=== PATIENT | male | born 1985 | race Caucasian/White ===

== ENCOUNTER 2017-11-17 21:20 | Emergency (ER) | payer OTHER ==
[2017-11-17] MEDS ORDERED: METOCLOPRAMIDE 10 MG/2 ML VIAL IVP ONE (21:46)
[2017-11-17] MEDS ORDERED: NS 1,000 ML IV ONE (21:47)
[2017-11-17] MEDS ORDERED: METOCLOPRAMIDE 10 MG/2 ML VIAL ONE (21:57)
[2017-11-17] MEDS ORDERED: MAGNESIUM SULF 1 GM/DEXTROSE 100 ML BAG IV ONE (22:46)
[2017-11-17] MEDS ORDERED: MAGNESIUM SULF 1 GM/DEXTROSE 100 ML IV ONE (22:46)
[2017-11-17] MEDS ORDERED: KETOROLAC 15 MG/1 ML SDV IVP ONE (22:46)
[2017-11-17] MEDS ORDERED: KETOROLAC 15 MG/1 ML SDV ONE (22:46)
[2017-11-17 23:23] VITALS: BP 125/73
--- NOTE | 2017-11-17 23:44 | EDPHY ---
H & P Time Seen by Provider: 11/17/17 21:30 HPI/ROS: CHIEF COMPLAINT: Headache HISTORY OF PRESENT ILLNESS: Patient is a 32-year-old male here chief complaint of headache for the last 24 hr. He has no significant past medical history uses no drugs or alcohol. He reports that yesterday morning he woke with a dull headache which slowly progressed throughout the day. He reports pulsating sensation to the left temporal area. There was no head injury. He has had no fever. He has no history of aneurysm and no family history of aneurysm with subarachnoid. He has tried Tylenol without relief of pain. Does report phono and photophobia. Denies any neck stiffness. REVIEW OF SYSTEMS: Constitutional: No fever, no chills. Eyes: No discharge. ENT: No sore throat. Cardiovascular: No chest pain, no palpitations. Respiratory: No cough, no shortness of breath. Gastrointestinal: No abdominal pain, no vomiting. Genitourinary: No hematuria. Musculoskeletal: No back pain. Skin: No rashes. Neurological: No dizziness, vision changes, ataxia. Smoking Status: Never smoked Physical Exam: General Appearance: Alert and no distress. Eyes: Pupils equal and round no injection. Respiratory: Chest is nontender, lungs are clear to auscultation. Cardiac: regular rate and rhythm. Gastrointestinal: Abdomen is soft and nontender, no masses, bowel sounds normal. Musculoskeletal: Neck is supple and nontender. Extremities have full range of motion and are nontender. Skin: No rashes or lesions. Constitutional: Initial Vital Signs Temperature (C) 36.4 C 11/17/17 21:23 Heart Rate 50 L 11/17/17 21:23 Respiratory Rate 16 11/17/17 21:23 Blood Pressure 120/84 H 11/17/17 21:23 O2 Sat (%) 99 11/17/17 21:23 O2 Delivery Mode Room Air Allergies/Adverse Reactions: No Known Allergies Allergy (Unverified 11/17/17 21:22) Home Medications: Medication Instructions Recorded Codeine/Butalbital/ASA/Caffein 1 each PO Q4 #12 capsule 11/17/17 [Fiorinal with Codeine #3 Cap] Medical Decision Making - Diagnostics Imaging Results: Imaging Impressions Head CT 11/17/17 22:11 Impression: Normal CT of the head. Specifically, a headache source is not identified. Results called and discussed with Spencer Simmons on 11/17/2017 at 22:47. ED Course/Re-evaluation: Patient here with 24 hr of headache that given its photophobia and phonophobia is likely a migraine headache. CT scan was obtained given this is his 1st headache of this type. There is no evidence of intracranial bleed, mass with acute abnormality. He has no focal deficits at time of discharge and feels significantly improved after IV fluids, Toradol, Reglan and magnesium. Patient seen under the direct supervision of doctor Cole Differential Diagnosis: Subarachnoid hemorrhage, intracranial bleed, migraine headache, trigeminal neuralgia, anemia - Data Points Laboratory Results: Laboratory Results 11/17/17 21:00 11/17/17 21:00 11/17/17 11/17/17 21:00 21:00 WBC 7.17 10^3/uL 10^3/uL (3.80-9.50) RBC 4.61 10^6/uL 10^6/uL (4.40-6.38) Hgb 15.4 g/dL g/dL (13.7-17.5) Hct 41.1 % % (40.0-51.0) MCV 89.2 fL fL (81.5-99.8) MCH 33.4 pg pg (27.9-34.1) MCHC 37.5 g/dL H g/dL (32.4-36.7) RDW 12.5 % % (11.5-15.2) Plt Count 182 10^3/uL 10^3/uL (150-400) Sodium 140 mEq/L mEq/L (135-145) Potassium 3.8 mEq/L mEq/L (3.3-5.0) Chloride 110 mEq/L mEq/L (97-110) Carbon Dioxide 24 mEq/l mEq/l (22-31) Anion Gap 6 mEq/L L mEq/L (8-16) BUN 18 mg/dL mg/dL (7-23) Creatinine 1.1 mg/dL mg/dL (0.7-1.3) Estimated GFR > 60 Glucose 96 mg/dL mg/dL (70-100) Calcium 9.5 mg/dL mg/dL (8.5-10.4) Medications Given: Discontinued Medications Diphenhydramine HCl (Benadryl Injection) 25 mg IVP EDNOW ONE Stop: 11/17/17 21:48 Last Admin: 11/17/17 21:55 Dose: 25 mg Sodium Chloride (Ns) 1,000 mls @ 0 mls/hr IV EDNOW ONE; Wide Open PRN Reason: Protocol Stop: 11/17/17 21:48 Last Admin: 11/17/17 21:53 Dose: 1,000 mls Magnesium Sulfate/Dextrose (Magnesium Sulf 1 Gm (Premix)) 100 mls @ 100 mls/hr IV EDNOW ONE Stop: 11/17/17 23:45 Last Admin: 11/17/17 22:52 Dose: 100 mls Ketorolac Tromethamine (Toradol) 15 mg IVP ONCE ONE Stop: 11/17/17 22:47 Last Admin: 11/17/17 22:51 Dose: 15 mg Metoclopramide HCl (Reglan Injection) 10 mg IVP EDNOW ONE Stop: 11/17/17 21:47 Last Admin: 11/17/17 21:56 Dose: 10 mg Departure - Departure Disposition: Home, Routine, Self-Care Clinical Impression: Migraine headache Condition: Good Instructions: Migraine Headache (ED), Acute Headache (ED) Additional Instructions: Return to the ER for any worsening or worrisome symptoms Referrals: VASILE LEAL [Primary Care Provider] - As per Instructions Prescriptions: Codeine/Butalbital/ASA/Caffein [Fiorinal with Codeine #3 Cap] 1 each PO Q4 #12 capsule
== END 2017-11-18 00:16 | disposition home or self-care (01) ==
DX: G43.909 Migraine, unspecified, not intractable, without status migrainosus (principal); E86.9 Volume depletion, unspecified
CPT/HCPCS: 96374; J1200; J1885; J2765; J3475

== ENCOUNTER 2018-02-17 14:47 | Emergency (ER) | payer OTHER ==
--- NOTE | 2018-02-17 15:03 | EDPHY ---
H & P Stated Complaint: dog bite to lip - Personal History Current Tetanus Diphtheria and Acellular Pertussis (TDAP): Yes - Medical/Surgical History Hx Asthma: No Hx Chronic Respiratory Disease: No Hx Diabetes: No Hx Cardiac Disease: No Hx Renal Disease: No Hx Cirrhosis: No Hx Alcoholism: No Hx HIV/AIDS: No Hx Splenectomy or Spleen Trauma: No Other PMH: none - Social History Smoking Status: Never smoked Time Seen by Provider: 02/17/18 15:02 Constitutional: Initial Vital Signs Temperature (C) 36.4 C 02/17/18 14:54 Heart Rate 75 02/17/18 14:54 Respiratory Rate 16 02/17/18 14:54 Blood Pressure 130/81 H 02/17/18 14:54 O2 Sat (%) 98 02/17/18 14:54 Allergies/Adverse Reactions: No Known Allergies Allergy (Unverified 11/17/17 21:22) Home Medications: Medication Instructions Recorded NK [No Known Home Meds] 02/17/18 Medical Decision Making Procedures: I was asked by Dr. Ashwin Looney to repair lip laceration. Laceration repair. Verbal consent was obtained from the patient. The 2 cm laceration on the right upper lip crossing vermilion border was anesthetized using 1% lidocaine with epinephrine. The wound was irrigated with saline, draped and explored to its base with a gloved finger. There were no deep structures involved. The wound was repaired with 6 0 Prolene, 7 sutures. The wound repair was complex. The procedure was performed by myself. (Eloina Sinclair) ED Course/Re-evaluation: CHIEF COMPLAINT: Dog bite to lip HISTORY OF PRESENT ILLNESS: The patient is a 33 y/o male complaining of a dog bite to his lip today. He was walking in a dog park today when he saw a dog and went to pet it when he was accidentally bit. Per the patient, the dog is up-to-date on it's vaccinations. The patient states he is up-to-date on his Tetanus vaccination. Denies numbness , paresthesias, headache, fever, chest pain, shortness of breath, abdominal pain , urinary or bowel complaints. REVIEW OF SYSTEMS: A comprehensive 10 system review of systems is otherwise negative aside from elements mentioned in the history of present illness and medical decision making. PHYSICAL EXAM: HR, BP, O2 Sat, RR. Temp noted General Appearance: Alert, well hydrated, appropriate, and non-toxic appearing. Head: Atraumatic without scalp tenderness or obvious injury Eyes: Pupils equal, round, reactive to light and accommodation, EOMI, no trauma , no injection. Ears: Clear bilaterally, no perforation, normal landmarks Nose: Atraumatic, no rhinorrhea, clear. Throat: There is no erythema or exudates, no lesions, normal tonsils, mucus membranes moist. Mouth: 2.5 cm vertical laceration aligning with the lateral aspect of the right nasal ala and coursing through the laine border; it is not through and through. There are several additional puncture wounds to the lip. Neck: Supple, nontender, no lymphadenopathy. Respiratory: No retractions, no distress, no wheezes, and no accessory muscle use. Lungs are clear to auscultation bilaterally. Cardiovascular: Regular rate and rhythm, no murmurs, rubs, or gallops. Bilateral carotid, radial, dorsalis pedis, and posterior tibial pulses intact. Good capillary refill all extremities. Gastrointestinal: Abdomen is soft, nontender, non-distended, no masses, no rebound, no guarding, no peritoneal signs. Musculoskeletal: Normal active ROM of all extremities, atraumatic. Neurological: Alert, appropriate, and interactive. The patient has normal DTRs and non-focal cranial nerves, motor, sensory, and cerebellar exam. Skin: No rashes, good turgor, no nodules on palpation. Past medical history: Denies Past surgical history: Denies Family history: Denies Social history: Girlfriend at bedside, lives in [place], self-employed DIAGNOSTICS/PROCEDURES/CRITICAL CARE TIME: Not indicated DIFFERENTIAL DIAGNOSIS: The differential diagnosis for the patient's lip injury included but was not limited to laceration, abrasion, dental trauma, contusion, muscular strain. MEDICAL DECISION MAKING: The patient is a 33 y/o male presenting with a dog bite to his lip today. On exam there is a 2.5 cm vertical laceration aligning with the lateral aspect of the right nasal ala and coursing through the laine border; it is not through and through. There are several additional puncture wounds to the lip. I discussed rabies treatment and antibiotic use. He is confident that the dog that bit him is up-to-date on his vaccinations and is not rabid. He is comfortable with the antibiotic treatment. Eloina Sinclair, PAC will suture the laceration on the lip. Reassessed the patient; I discussed Augmentin prescription and suture removal. His first dose of Augmentin was given prior to discharge. Return precautions provided; patient is comfortable with this plan. (Ashwin Looney) - Data Points Medications Given: Discontinued Medications Amoxicillin/Clavulanate Potassium (Augmentin 875mg) 875 mg PO EDNOW ONE PRN Reason: Protocol Stop: 02/17/18 15:13 Last Admin: 02/17/18 15:28 Dose: 875 mg Departure - Departure Disposition: Home, Routine, Self-Care Clinical Impression: Laceration Condition: Good Instructions: Care For Your Stitches (ED), Facial Laceration (ED) Additional Instructions: 1. Take Augmentin as prescribed. 2. Sutures out in 5 days. 3. Return to the Emergency Department for fever, redness, discharge from wound, increasing pain or other worsening of condition. Referrals: VASILE LEAL [Primary Care Provider] - As per Instructions Report Scribed for: Ashwin Looney Report Scribed by: Kaycee Perez Date of Report: 02/17/18 Time of Report: 15:03
[2018-02-17] MEDS ORDERED: AMOXICILLIN/CLAVULANATE POT 875/125 MG TAB PO ONE (15:12)
[2018-02-17 16:30] VITALS: BP 114/72
== END 2018-02-17 16:27 | disposition home or self-care (01) ==
PROC: 0CQ0XZZ Repair Upper Lip, External Approach (ICD-10-PCS; principal; 2018-02-17)
DX: S01.551A Open bite of lip, initial encounter (principal); W54.0XXA Bitten by dog, initial encounter; Y93.K9 Activity, other involving animal care